=== PATIENT | female | born 1945 | race Two or more races ===

== ENCOUNTER 2018-12-26 10:04 | Outpatient (CLI) | payer OTHER ==
[~2018-12-26 10:04] MED LIST: HYZAAR 50-12.1 UDTAB PO
== END 2018-12-26 11:00 | disposition home or self-care (01) ==
LOC: NUCLEAR 10:04
DX: M81.0 Age-related osteoporosis without current pathological fracture (principal); Z13.820 Encounter for screening for osteoporosis

== ENCOUNTER 2023-08-24 13:09 | Outpatient (CLI) | payer OTHER | END 2023-08-24 13:14 | disposition home or self-care (01) | LOC: NUCLEAR 13:09 | PROVIDERS: ATTEND Internal Medicine Geriatric Medicine | DX: M81.0 Age-related osteoporosis without current pathological fracture (principal); M15.0 Primary generalized (osteo)arthritis ==